=== PATIENT | female | born 1985 | race Caucasian/White ===

== ENCOUNTER 2021-10-03 08:29 | Outpatient (CLI) | payer OTHER | END 2021-10-03 08:30 | disposition home or self-care (01) | LOC: CSHMAMMO 08:29 | PROVIDERS: ATTEND Family Medicine | DX: N60.02 Solitary cyst of left breast (principal); N64.9 Disorder of breast, unspecified; Z80.3 Family history of malignant neoplasm of breast | CPT/HCPCS: 77066; G0279 ==